=== PATIENT | male | born 1945 | race Caucasian/White ===

== ENCOUNTER 2016-04-29 07:54 | Day surgery (SDC) | payer OTHER ==
[2016-04-29] MEDS ORDERED: REGLAN ONE (08:37)
[2016-04-29] MEDS ORDERED: LR 1,000 ML ONE ×2 (08:37→10:42)
[2016-04-29] MEDS ORDERED: KEFZOL 2 GM/D5W 50 ML ONE (08:37)
[2016-04-29] MEDS ORDERED: PEPCID ONE (08:37)
[2016-04-29] MEDS ORDERED: SODIUM CHLORIDE 0.9% ONE (10:40)
[2016-04-29] MEDS ORDERED: MARCAINE 0.25% PF/EPI 1:200,000 ONE (10:42)
[2016-04-29] MEDS ORDERED: DIPRIVAN 1% ONE (12:45)
[2016-04-29] MEDS ORDERED: FENTANYL ONE (12:45)
[2016-04-29] MEDS ORDERED: NORCO-7.5 PO PRN (13:19)
[2016-04-29] MEDS ORDERED: ZOFRAN IV PRN (13:19)
[2016-04-29] MEDS ORDERED: ZOFRAN ONE (13:25)
[2016-04-29] MEDS ORDERED: ROBINUL ONE (13:25)
[2016-04-29] MEDS ORDERED: XYLOCAINE-MPF 2% ONE (13:25)
[2016-04-29] MEDS ORDERED: NEO-SYNEPHRINE ONE (13:25)
[2016-04-29] MEDS ORDERED: QUELICIN (DOSE) ONE (13:25)
[2016-04-29] MEDS ORDERED: DECADRON ONE (13:25)
[2016-04-29] MEDS ORDERED: NEOSTIGMINE ONE (13:25)
[2016-04-29] MEDS ORDERED: LR 2,000 ML ONE (13:25)
[2016-04-29] MEDS ORDERED: ZEMURON ONE (13:25)
--- NOTE | 2016-04-29 13:49 | Diag Imaging Result Document ---
PROCEDURE NAME: OPERATIVE CHOLANGIOGRAM - 04/29/2016 INTRAOPERATIVE CHOLANGIOGRAM: FINDINGS: There is no evidence of obstruction or filling defect in the common hepatic or common bile ducts. IMPRESSION: No evidence of retained stones.
[2016-04-29 14:43] VITALS: BP 144/77
--- NOTE | 2016-04-29 18:48 | OPERATIVE NOTE ---
PROCEDURE DATE: 04/29/2016 PREOPERATIVE DIAGNOSIS: Symptomatic cholelithiasis. POSTOPERATIVE DIAGNOSIS: Cholecystitis. PROCEDURE PERFORMED: Laparoscopic cholecystectomy with intraoperative cholangiogram. SURGEON: Esther Haq MD. BEAVER TRAPPER: Dr. Sims. Dr. Sims was present for retraction and identification of abnormal anatomy due to the acute inflammatory state. He was there from the beginning of the operation to the skin closure. ESTIMATED BLOOD LOSS: 10 mL. SPECIMENS: Gallbladder. ANESTHESIA: General. COMPLICATIONS: None. DRAINS: Beto drain left in gallbladder fossa. OPERATIVE INDICATION: This is a 71-year-old male with episodic colicky right upper quadrant pain that has persisted and become more severe. Ultrasound shows stones. LFTs normal. OPERATIVE FINDINGS: There was an inflamed, distended gallbladder. INTERPRETATION OF INTRAOPERATIVE CHOLANGIOGRAM: There is a moderate length cystic duct with rapid flow contrast and a nondilated common bile duct. With rapid flow in the duodenum, no filling defects. Short segment of pancreatic duct was visualized and appeared normal. Bilateral 2nd and 3rd degree biliary radicals in the common hepatic duct were visualized and they were normal as well. OPERATIVE NOTE: Risks, benefits, alternatives discussed with the patient and he consented to the procedure. He was seen in the preoperative area and the surgery to be performed confirmed. He was taken operating room, placed in supine position. General anesthesia was induced without complication. Preincisional antibiotics were administered with no complication. His abdomen was prepped with chlorhexidine solution and draped in the usual fashion after hair was removed with clippers. Time-out was performed between nursing, surgical, and anesthesia staff. All agreed on the procedure. A periumbilical block was performed. A curvilinear infraumbilical incision was made and dissection carried down along the fascia. A midline fascia incision was made and the abdomen was entered in a controlled fashion. A 12 mm Tony trocar was placed and the abdomen was insufflated with 50 mmHg. Three 5 mm trocars were placed. One in the epigastrium after infiltration of the peritoneum, 1 in midclavicular line off the costal margin, and 1 more laterally. Using the locking grasper we grasped the gallbladder dome, retracted it cephalad starting laterally and progressing medially at the infundibulocystic junction. We stripped the peritoneum and inflammatory adhesions, exposing the infundibulocystic junction. There is a nondilated cystic duct. We were able to [place] this and established critical view of safety. There were some small arterial and venous branches coursing through here that we took with the cautery. After satisfactory dissecting out the critical view, we placed a clip on the gallbladder side of the cystic duct and made a ductotomy, performed cholangiogram with catheter with above findings. After satisfactory cholangiogram, we triply clipped the cystic duct and divided it. We began taking the gallbladder out of the gallbladder fossa. We identified a cystic artery entering into the gallbladder further up the gallbladder. We doubly clipped this and divided it. There was some lymphatic tissue over this as well that we doubly clipped also. We then began taking the gallbladder out of the gallbladder fossa. It was quite adherent and very thin walled. We made an opening that there was minimal bile spillage and no spillage of stones. There is a more posterior branch of the cystic artery that entered the gallbladder posteriorly and during removal of the gallbladder there was some bleeding noted from this, we clipped this and easily controlled it. We removed the gallbladder in its entirety from the gallbladder fossa, obtaining hemostasis as we went. We placed the gallbladder in an EndoCatch bag. We copiously irrigated the abdomen. We removed the trocars under direct visualization. Given the friable nature of the cystic duct and the spillage of bile, we placed a Beto drain in the gallbladder fossa, secured with 2-0 nylon suture, and brought this out through a lateral port site. We deflated the abdomen and brought the gallbladder out through the umbilical incision. We did have to make the fascial incision larger to accommodate this and there was some spillage of bile in the wound which we irrigated clear. We passed the gallbladder off the field. We closed the fascia with interrupted 2-0 Vicryl sutures along the midline. Skin was closed 4-0 Monocryl sutures and Dermabond was applied for dressing. He tolerated the procedure well. There was no identified complication. Transferred to PACU in good condition. I spoke with the .
[2016-04-30] MEDS ORDERED: DASATINIB 100 MG PO SCH (09:00)
[2016-04-30] MEDS ORDERED: FOLIC ACID PO SCH (09:00)
[2016-04-30] MEDS ORDERED: NON-FORMULARY MED (Cyanocobalamin (Vitamin B-12) [Vitamin B-12] 1,000 MCG) PO SCH (09:00)
== END 2016-04-29 14:55 | disposition home or self-care (01) ==
LOC: OPS 07:54
PROVIDERS: ATTEND Surgery
DX: K80.10 Calculus of gallbladder with chronic cholecystitis without obstruction (principal); Z87.891 Personal history of nicotine dependence; Z85.46 Personal history of malignant neoplasm of prostate; Z23 Encounter for immunization
CPT/HCPCS: 74300; 88304; C1751; J0330; J0690; J1100; J2370; J2405; J3010; J7120; Q9966; J2710; S0020